=== PATIENT | male | born 1965 | race Caucasian/White ===

== ENCOUNTER 2022-10-31 12:03 | Observation (INO) | payer MEDICAID, OTHER ==
[~2022-10-31] VITALS: Ht 177.8 cm; Wt 168.5 kg
[2022-10-31] MEDS ORDERED: METF10004 PO (12:31)
[2022-10-31] MEDS ORDERED: LITH300T2 PO (12:31)
[2022-10-31] MEDS ORDERED: AMLO-140 PO (12:31)
[2022-10-31] MEDS ORDERED: ALPR2TAB3 PO (12:31)
[2022-10-31] MEDS ORDERED: FARX1TAB3 PO (12:31)
[2022-10-31] MEDS ORDERED: ATOR1TAB19 PO ×2 (12:31→19:20)
[2022-10-31] MEDS ORDERED: PERCOCET 5MG/325MG TAB PO ONE (13:40)
[2022-10-31 14:55] LABS: HEMATOCRIT 38.1 % (42.0-52.0); HEMOGLOBIN 11.4 g/dl (13.5-17.5); MEAN CORPUSCULAR HEMOGLOBIN 24.7 pg (27.0-33.0); MEAN CORPUSCULAR HGB CONC 29.9 g/dl (32.0-36.5); MEAN CORPUSCULAR VOLUME 82.6 fl (80.0-96.0); PLATELET COUNT, AUTOMATED 311 10^3/uL (150-450); RED BLOOD COUNT 4.61 10^6/uL (4.30-6.10); WHITE BLOOD COUNT 12.1 10^3/uL (4.0-10.0)
[2022-10-31 15:15] LABS: BLOOD UREA NITROGEN 11 MG/DL (9-23); CALCIUM LEVEL 9.5 MG/DL (8.5-10.1); CARBON DIOXIDE LEVEL 30 MMOL/L (20-31); CHLORIDE LEVEL 105 MMOL/L (98-107); CREATININE FOR GFR 0.87 MG/DL (0.70-1.30); GLOMERULAR FILTRATION RATE > 60.0 (>56); GLUCOSE, FASTING 116 MG/DL (60-100); POTASSIUM SERUM 4.9 MMOL/L (3.5-5.1); SODIUM LEVEL 140 MMOL/L (136-145)
[2022-10-31] MEDS ORDERED: ISOVUE-370 76% 100ML VIAL As Ordered ONE (15:20)
[2022-10-31] MEDS ORDERED: MORPHINE 4 MG/ML 1ML VIAL IV ONE (16:25)
[2022-10-31] MEDS ORDERED: **hydrALAZINE HCL** 25 MG TAB PO PRN (17:25)
[2022-10-31] MEDS ORDERED: PERCOCET 5MG/325MG TAB PO PRN (17:25)
[2022-10-31] MEDS ORDERED: GLUCAGON INJ 1MG VIAL SC PRN (17:30)
[2022-10-31] MEDS ORDERED: GLUCOSE 4GM CHEW TABLET PO PRN (17:30)
[2022-10-31] MEDS: INSULIN LISPRO (NovoLOG) PER UNIT SC SCH ×2 (17:30→21:00)
[2022-10-31] MEDS ORDERED: DEXTROSE 50% 50ML SYRINGE IV PRN (17:30)
[2022-10-31] MEDS ORDERED: LITH45TASA PO (19:08)
[2022-10-31] MEDS ORDERED: ALPR1TAB3 PO (19:08)
[2022-10-31] MEDS ORDERED: TERA10CA3 PO (19:18)
[2022-10-31] MEDS ORDERED: ZOLO100T PO (19:18)
[2022-10-31] MEDS ORDERED: MODA100T13 PO (19:18)
[2022-10-31] MEDS ORDERED: GABA-282 PO (19:18)
[2022-10-31] MEDS ORDERED: TRAM50TA2 PO (19:18)
[2022-10-31] MEDS ORDERED: AMLO1TAB25 PO (19:20)
[2022-10-31] MEDS ORDERED: HOME MED LIST COMPLETE! XX SCH (19:25)
[2022-10-31] MEDS ORDERED: ALPRAZolam 0.5 MG TAB PO PRN (19:45)
[2022-10-31 21:18] VITALS: BP 175/98
[2022-10-31] MEDS: HEPARIN SOD (PORCINE) 5000UNITS/ML 1ML VIAL/SYRINGE SC SCH (22:02)
[2022-10-31] MEDS: GABAPENTIN 300 MG CAP PO SCH (22:02)
[2022-10-31] MEDS: LITHIUM CARBONATE 450 MG **CR** TAB PO SCH (22:03)
[2022-10-31] MEDS: TERAZOSIN 5MG CAPSULE PO SCH (22:04)
[2022-10-31 22:11] VITALS: BP 160/98
[2022-11-01] MEDS: PERCOCET 5MG/325MG TAB PO PRN ×5 (00:16→22:57)
[2022-11-01 06:00] VITALS: BP 166/101
[2022-11-01 06:35] LABS: HEMATOCRIT 35.2 % (42.0-52.0); MEAN CORPUSCULAR HEMOGLOBIN 26.1 pg (27.0-33.0); MEAN CORPUSCULAR HGB CONC 31.3 g/dl (32.0-36.5); MEAN CORPUSCULAR VOLUME 83.6 fl (80.0-96.0); PLATELET COUNT, AUTOMATED 271 10^3/uL (150-450); RED BLOOD COUNT 4.21 10^6/uL (4.30-6.10); WHITE BLOOD COUNT 8.5 10^3/uL (4.0-10.0)
[2022-11-01 06:53] LABS: BLOOD UREA NITROGEN 7 MG/DL (9-23); CARBON DIOXIDE LEVEL 27 MMOL/L (20-31); CHLORIDE LEVEL 105 MMOL/L (98-107); GLOMERULAR FILTRATION RATE > 60.0 (>56); GLUCOSE, FASTING 88 MG/DL (60-100); POTASSIUM SERUM 4.2 MMOL/L (3.5-5.1); SODIUM LEVEL 138 MMOL/L (136-145)
[2022-11-01] MEDS: INSULIN LISPRO (NovoLOG) PER UNIT SC SCH ×4 (07:30→20:07)
[2022-11-01] MEDS: MODAFINIL 100 MG TABLET PO SCH (08:53)
[2022-11-01] MEDS: LITHIUM CARBONATE 450 MG **CR** TAB PO SCH ×2 (08:53→20:23)
[2022-11-01] MEDS: TERAZOSIN 5MG CAPSULE PO SCH ×2 (08:53→20:23)
[2022-11-01] MEDS: SERTRALINE 100 MG TAB PO SCH (08:54)
[2022-11-01] MEDS: HEPARIN SOD (PORCINE) 5000UNITS/ML 1ML VIAL/SYRINGE SC SCH ×2 (08:54→20:24)
[2022-11-01] MEDS: GABAPENTIN 300 MG CAP PO SCH ×3 (08:54→20:23)
[2022-11-01] MEDS: ATORVASTATIN 10 MG TAB PO SCH (08:54)
[2022-11-01] MEDS ORDERED: KETOROLAC 30 MG/ML 1ML VIAL IV ONE (09:05)
[2022-11-01] MEDS ORDERED: MORPHINE 2 MG/ML 1ML VIAL IV PRN (10:30)
[2022-11-01 11:55] VITALS: BP 134/76
[2022-11-01 14:00] VITALS: BP 147/96
[2022-11-01] MEDS ORDERED: IBUPROFEN 400MG TAB PO SCH (14:00)
[2022-11-01] MEDS ORDERED: IBUPROFEN 400MG TAB PO PRN (18:00)
[2022-11-01 20:00] VITALS: BP 163/108
[2022-11-01 20:51] VITALS: BP 144/90
[2022-11-01] MEDS ORDERED: OXYMETAZOLINE 0.05% NASAL SPRAY (AFRIN) SCH (21:00)
[2022-11-01] MEDS ORDERED: FLUTICASONE PROP 0.05% NASAL SPRAY 16 GM (FLONASE) NARES SCH (21:00)
[2022-11-02] MEDS: PERCOCET 5MG/325MG TAB PO PRN ×2 (03:16→08:47)
[2022-11-02 05:50] LABS: BASO % 0.5 % (0.0-1.0); EOS # 0.2 10^3/uL (0.0-0.5); EOS % 2.4 % (0.0-3.0); HEMATOCRIT 35.7 % (42.0-52.0); HEMOGLOBIN 10.9 g/dl (13.5-17.5); LYMPH # 1.2 10^3/uL (1.5-5.0); LYMPH % 14.9 % (24.0-44.0); MEAN CORPUSCULAR HEMOGLOBIN 25.2 pg (27.0-33.0); MEAN CORPUSCULAR HGB CONC 30.5 g/dl (32.0-36.5); MEAN CORPUSCULAR VOLUME 82.4 fl (80.0-96.0); MONO # 0.8 10^3/uL (0.0-0.8); MONO % 9.2 % (2.0-8.0); NEUTROPHILS % 72.6 % (36.0-66.0); PLATELET COUNT, AUTOMATED 278 10^3/uL (150-450); RED BLOOD COUNT 4.33 10^6/uL (4.30-6.10); WHITE BLOOD COUNT 8.3 10^3/uL (4.0-10.0)
[2022-11-02 06:00] VITALS: BP 149/93
[2022-11-02 06:10] LABS: BLOOD UREA NITROGEN 10 MG/DL (9-23); CALCIUM LEVEL 8.7 MG/DL (8.5-10.1); CARBON DIOXIDE LEVEL 25 MMOL/L (20-31); CHLORIDE LEVEL 103 MMOL/L (98-107); CREATININE FOR GFR 0.84 MG/DL (0.70-1.30); GLOMERULAR FILTRATION RATE > 60.0 (>56); GLUCOSE, FASTING 95 MG/DL (60-100); POTASSIUM SERUM 4.3 MMOL/L (3.5-5.1); SODIUM LEVEL 138 MMOL/L (136-145)
[2022-11-02] MEDS: INSULIN LISPRO (NovoLOG) PER UNIT SC SCH (07:13)
[2022-11-02] MEDS: GABAPENTIN 300 MG CAP PO SCH (08:44)
[2022-11-02] MEDS: ATORVASTATIN 10 MG TAB PO SCH (08:44)
[2022-11-02] MEDS: SERTRALINE 100 MG TAB PO SCH (08:45)
[2022-11-02] MEDS: MODAFINIL 100 MG TABLET PO SCH (08:45)
[2022-11-02] MEDS: LITHIUM CARBONATE 450 MG **CR** TAB PO SCH (08:45)
[2022-11-02] MEDS: HEPARIN SOD (PORCINE) 5000UNITS/ML 1ML VIAL/SYRINGE SC SCH (08:46)
[2022-11-02 08:49] VITALS: BP 151/94
[2022-11-02] MEDS: TERAZOSIN 5MG CAPSULE PO SCH (08:50)
[2022-11-02] MEDS ORDERED: PERCOCET PO (10:18)
== END 2022-11-02 11:27 | disposition home or self-care (01) ==
LOC: M ED 12:03 → EDBD 12:03 → INTOOBSV 17:18 → M ED INP 17:18 → M MSPAV 21:08
PROVIDERS: ADMIT Internal Medicine; ATTEND Internal Medicine
DX: S22.41XA Multiple fractures of ribs, right side, initial encounter for closed fracture (principal); R91.8 Other nonspecific abnormal finding of lung field; W01.10XA Fall on same level from slipping, tripping and stumbling with subsequent striking against unspecified object, initial encounter; Y92.098 Other place in other non-institutional residence as the place of occurrence of the external cause; I16.0 Hypertensive urgency; E11.9 Type 2 diabetes mellitus without complications; E78.5 Hyperlipidemia, unspecified; D72.829 Elevated white blood cell count, unspecified; F41.9 Anxiety disorder, unspecified; F32.9 Major depressive disorder, single episode, unspecified; E66.9 Obesity, unspecified; Z68.43 Body mass index [BMI] 50.0-59.9, adult; M54.9 Dorsalgia, unspecified; G89.29 Other chronic pain; G47.33 Obstructive sleep apnea (adult) (pediatric); G47.419 Narcolepsy without cataplexy; J30.9 Allergic rhinitis, unspecified; Z98.84 Bariatric surgery status; Z79.899 Other long term (current) drug therapy; Z79.84 Long term (current) use of oral hypoglycemic drugs; F17.210 Nicotine dependence, cigarettes, uncomplicated
CPT/HCPCS: 36415; 71101; 71260; 80048; 84145; 85025; 85027; 94010; 96372; 96374; 96375; 97161; 99285; J1815; J1885; Q9967

== ENCOUNTER → 2023-01-05 | Outpatient (CLI) | payer OTHER ==
[~2023-01-05] MED LIST: ACET-683 PO; ALPR1TAB3 PO; ALPR2TAB3 PO; AMLO-140 PO; AMLO1TAB25 PO; ATOR1TAB19 PO; FARX1TAB3 PO; GABA-282 PO; LITH300T2 PO; LITH45TASA PO; METF10004 PO; MODA100T13 PO; PERCOCET PO; TERA10CA3 PO; TRAM50TA2 PO; ZOLO100T PO
== END ==
LOC: M RAD 08:48
PROVIDERS: ATTEND Internal Medicine Pulmonary Disease
DX: R91.8 Other nonspecific abnormal finding of lung field (principal)

== ENCOUNTER → 2023-01-12 | Outpatient (CLI) | payer OTHER ==
[2023-01-12 14:40] LABS: C REACTIVE PROTEIN QUANTITATIV < 0.40 MG/DL (<1.0)
[2023-01-12 14:41] LABS: ALBUMIN 3.6 G/DL (3.2-5.2); ALKALINE PHOSPHATASE 67 U/L (46-116); ALT/SGPT 13 U/L (7.0-40); AST/SGOT 15 U/L (<34); BILIRUBIN,TOTAL 0.2 MG/DL (0.3-1.2); BLOOD UREA NITROGEN 19 MG/DL (9-23); CARBON DIOXIDE LEVEL 26 MMOL/L (20-31); CHLORIDE LEVEL 105 MMOL/L (98-107); CHOLESTEROL LEVEL 111 MG/DL (<200); CHOLESTEROL RISK RATIO 2.45 (<5); CK-MB VALUE MASS 3.4 NG/ML (<3.6); CPK CREATINE PHOSPHOKINASE 276 U/L (46-171); CREATININE FOR GFR 1.21 MG/DL (0.70-1.30); GLOMERULAR FILTRATION RATE > 60.0 (>56); GLUCOSE, FASTING 95 MG/DL (60-100); HDL CHOLESTEROL 45.2 MG/DL (>40); LDL CHOLESTEROL 44.8 MG/DL (<100); LITHIUM LEVEL 1.12 MMOL/L (1.0-1.20); MB/CK RELATIVE INDEX 1.23 (< OR =4); NON-HDL-C 65.8 MG/DL; POTASSIUM SERUM 4.8 MMOL/L (3.5-5.1); SODIUM LEVEL 136 MMOL/L (136-145); THYROID STIMULATING HORMONE 1.901 uIU/ML (0.55-4.78); TOTAL PROTEIN 6.5 G/DL (5.7-8.2); TRIGLYCERIDES LEVEL 105 MG/DL (<150)
== END ==
LOC: M PLALAB 12:05
PROVIDERS: ATTEND Student in an Organized Health Care Education/Training Program
DX: Z00.00 Encounter for general adult medical examination without abnormal findings (principal); M79.10 Myalgia, unspecified site; E11.42 Type 2 diabetes mellitus with diabetic polyneuropathy

== ENCOUNTER → 2023-07-06 | Outpatient (CLI) | payer OTHER ==
[2023-07-06 16:05] LABS: BASO # 0.1 10^3/uL (0.0-0.2); BASO % 0.6 % (0.0-1.0); EOS # 0.7 10^3/uL (0.0-0.5); EOS % 5.4 % (0.0-3.0); HEMATOCRIT 33.6 % (42.0-52.0); LYMPH # 2.3 10^3/uL (1.5-5.0); LYMPH % 19.2 % (24.0-44.0); MEAN CORPUSCULAR HEMOGLOBIN 28.7 pg (27.0-33.0); MEAN CORPUSCULAR HGB CONC 32.7 g/dl (32.0-36.5); MEAN CORPUSCULAR VOLUME 87.7 fl (80.0-96.0); MONO % 8.2 % (2.0-8.0); NEUTROPHILS % 66.3 % (36.0-66.0); PLATELET COUNT, AUTOMATED 351 10^3/uL (150-450); RED BLOOD COUNT 3.83 10^6/uL (4.30-6.10)
[2023-07-06 16:52] LABS: HEMOGLOBIN A1c 6.2 % (4.0-6.0)
== END ==
LOC: M PLAIMG 12:37
PROVIDERS: ATTEND Student in an Organized Health Care Education/Training Program
DX: F32.A Depression, unspecified (principal); M51.86 Other intervertebral disc disorders, lumbar region

== ENCOUNTER → 2024-03-15 | Outpatient (CLI) | payer MEDICAID, OTHER ==
[2024-03-15 15:03] LABS: BASO # 0.1 10^3/uL (0.0-0.2); BASO % 0.9 % (0.0-1.0); EOS # 0.6 10^3/uL (0.0-0.5); EOS % 8.2 % (0.0-3.0); HEMATOCRIT 35.1 % (42.0-52.0); LYMPH # 1.7 10^3/uL (1.5-5.0); LYMPH % 22.2 % (24.0-44.0); MEAN CORPUSCULAR HGB CONC 31.3 g/dl (32.0-36.5); MONO # 0.5 10^3/uL (0.0-0.8); MONO % 6.6 % (2.0-8.0); NEUTROPHILS # 4.7 10^3/uL (1.5-8.5); NEUTROPHILS % 61.8 % (36.0-66.0); PLATELET COUNT, AUTOMATED 304 10^3/uL (150-450); RED BLOOD COUNT 4.08 10^6/uL (4.30-6.10); WHITE BLOOD COUNT 7.5 10^3/uL (4.0-10.0)
[2024-03-15 15:15] LABS: HEMOGLOBIN A1c 5.9 % (4.0-6.0)
[2024-03-15 15:19] LABS: IRON (FE) 17 UG/DL (65-175)
[2024-03-15 15:20] LABS: ALBUMIN 3.6 G/DL (3.2-5.2); ALKALINE PHOSPHATASE 62 U/L (46-116); ALT/SGPT 15 U/L (7.0-40); AST/SGOT 9 U/L (<34); BILIRUBIN,TOTAL 0.3 MG/DL (0.3-1.2); BLOOD UREA NITROGEN 12 MG/DL (9-23); CALCIUM LEVEL 9.3 MG/DL (8.5-10.1); CARBON DIOXIDE LEVEL 26 MMOL/L (20-31); CHLORIDE LEVEL 112 MMOL/L (98-107); CHOLESTEROL LEVEL 115 MG/DL (<200); CREATININE FOR GFR 1.01 MG/DL (0.70-1.30); FERRITIN 4.5 NG/ML (10.5-307.3); FREE T4 0.94 NG/DL (0.89-1.76); GLOMERULAR FILTRATION RATE > 60.0 (>56); GLUCOSE, FASTING 112 MG/DL (60-100); HDL CHOLESTEROL 47.8 MG/DL (>40); MAGNESIUM LEVEL 1.8 MG/DL (1.8-2.4); NON-HDL-C 67.2 MG/DL; POTASSIUM SERUM 4.6 MMOL/L (3.5-5.1); SODIUM LEVEL 139 MMOL/L (136-145); TOTAL PROTEIN 6.9 G/DL (5.7-8.2); TRIGLYCERIDES LEVEL 91 MG/DL (<150)
[2024-03-15 15:21] LABS: THYROID STIMULATING HORMONE 1.057 uIU/ML (0.55-4.78)
[2024-03-15 15:22] LABS: VITAMIN B12 LEVEL 375 PG/ML (211-911)
[2024-03-21 23:13] LABS: TESTOSTERONE FREE (DIRECT) 81.7 pg/mL (35.0-155.0)
== END ==
LOC: M LAB 13:33
PROVIDERS: ATTEND Nurse Practitioner Psychiatric/Mental Health
DX: F41.9 Anxiety disorder, unspecified (principal)

== ENCOUNTER → 2024-04-04 | Outpatient (CLI) | payer OTHER | LOC: M SLEEP HO 10:36 | PROVIDERS: ATTEND Nurse Practitioner Family | DX: G47.33 Obstructive sleep apnea (adult) (pediatric) (principal) ==

== ENCOUNTER → 2024-04-12 | Outpatient (CLI) | payer OTHER, MEDICAID ==
[~2024-04-12] MED LIST changes: +GABA-1172 PO; -GABA-282 PO; +LITH450T11 PO; -LITH45TASA PO
== END ==
LOC: M PAIN 13:00
PROVIDERS: ATTEND Nurse Practitioner Family
DX: M54.16 Radiculopathy, lumbar region (principal); G89.29 Other chronic pain; E66.9 Obesity, unspecified; G47.33 Obstructive sleep apnea (adult) (pediatric); M79.7 Fibromyalgia; E78.5 Hyperlipidemia, unspecified; E11.40 Type 2 diabetes mellitus with diabetic neuropathy, unspecified; F41.8 Other specified anxiety disorders; I10 Essential (primary) hypertension; Z98.84 Bariatric surgery status; F17.200 Nicotine dependence, unspecified, uncomplicated; Z79.84 Long term (current) use of oral hypoglycemic drugs; Z79.899 Other long term (current) drug therapy; Z68.43 Body mass index [BMI] 50.0-59.9, adult

== ENCOUNTER → 2024-05-11 | Outpatient (CLI) | payer OTHER | LOC: M PLAIMG 07:47 | PROVIDERS: ATTEND Nurse Practitioner Family | DX: M54.16 Radiculopathy, lumbar region (principal); M47.896 Other spondylosis, lumbar region ==

== ENCOUNTER → 2024-06-02 | Outpatient (CLI) | payer OTHER | LOC: M SLEEP 20:00 | PROVIDERS: ATTEND Internal Medicine Pulmonary Disease | DX: G47.33 Obstructive sleep apnea (adult) (pediatric) (principal) ==

== ENCOUNTER → 2024-07-31 | Outpatient (REF) | payer OTHER ==
[2024-07-31 18:04] LABS: HEMOGLOBIN A1c 5.8 % (4.0-6.0)
[2024-07-31 18:05] LABS: ALBUMIN 3.3 G/DL (3.2-5.2); ALKALINE PHOSPHATASE 52 U/L (40-129); ALT/SGPT 26 U/L (7.0-40); AST/SGOT 23 U/L (<34); BILIRUBIN,TOTAL 0.3 MG/DL (0.3-1.2); BLOOD UREA NITROGEN 14 MG/DL (9-23); CALCIUM LEVEL 9.9 MG/DL (8.5-10.1); CARBON DIOXIDE LEVEL 25 MMOL/L (20-31); CHLORIDE LEVEL 109 MMOL/L (98-107); CHOLESTEROL LEVEL 113 MG/DL (<200); CHOLESTEROL RISK RATIO 2.93 (<5); CREATININE FOR GFR 1.37 MG/DL (0.70-1.30); GLUCOSE, FASTING 90 MG/DL (60-100); HDL CHOLESTEROL 38.5 MG/DL (>40); LDL CHOLESTEROL 47.9 MG/DL (<100); NON-HDL-C 74.5 MG/DL; SODIUM LEVEL 137 MMOL/L (136-145); THYROID STIMULATING HORMONE 0.862 uIU/ML (0.55-4.78); TOTAL 25(OH) VITAMIN D 62.8 NG/ML (20.0-100.0); TOTAL PROTEIN 6.9 G/DL (5.7-8.2); TRIGLYCERIDES LEVEL 133 MG/DL (<150)
== END ==
LOC: M LAB REF 16:21
PROVIDERS: ATTEND Physician Assistant
DX: Z11.9 Encounter for screening for infectious and parasitic diseases, unspecified (principal); E66.9 Obesity, unspecified; E55.9 Vitamin D deficiency, unspecified

== ENCOUNTER → 2024-11-12 | Outpatient (CLI) | payer OTHER ==
[~2024-11-12] MED LIST changes: -LITH450T11 PO; +LITH450T17 PO
[2024-11-12 14:11] LABS: BASO # 0.1 10^3/uL (0.0-0.2); BASO % 0.7 % (0.0-1.0); EOS % 9.4 % (0.0-3.0); HEMATOCRIT 35.3 % (42.0-52.0); HEMOGLOBIN 10.8 g/dl (13.5-17.5); LYMPH # 2.4 10^3/uL (1.5-5.0); LYMPH % 23.7 % (24.0-44.0); MEAN CORPUSCULAR HEMOGLOBIN 25.3 pg (27.0-33.0); MEAN CORPUSCULAR HGB CONC 30.6 g/dl (32.0-36.5); MEAN CORPUSCULAR VOLUME 82.7 fl (80.0-96.0); MONO # 0.7 10^3/uL (0.0-0.8); MONO % 6.5 % (2.0-8.0); NEUTROPHILS % 59.5 % (36.0-66.0); PLATELET COUNT, AUTOMATED 308 10^3/uL (150-450); RED BLOOD COUNT 4.27 10^6/uL (4.30-6.10); WHITE BLOOD COUNT 10.2 10^3/uL (4.0-10.0)
[2024-11-12 14:47] LABS: THYROID STIMULATING HORMONE 1.543 uIU/ML (0.55-4.78)
[2024-11-12 18:11] LABS: LITHIUM LEVEL 0.55 MMOL/L (1.0-1.20)
== END ==
LOC: M LAB 13:13
PROVIDERS: ATTEND Nurse Practitioner Psychiatric/Mental Health
DX: F33.0 Major depressive disorder, recurrent, mild (principal)

== ENCOUNTER → 2025-02-12 | Outpatient (CLI) | payer OTHER ==
[2025-02-12 09:56] LABS: BASO # 0.1 10^3/uL (0.0-0.2); BASO % 0.8 % (0.0-1.0); EOS # 0.6 10^3/uL (0.0-0.5); EOS % 6.5 % (0.0-3.0); LYMPH # 2.2 10^3/uL (1.5-5.0); LYMPH % 24.7 % (24.0-44.0); MONO # 0.7 10^3/uL (0.0-0.8); MONO % 7.4 % (2.0-8.0); NEUTROPHILS # 5.4 10^3/uL (1.5-8.5); NEUTROPHILS % 60.4 % (36.0-66.0); PLATELET COUNT, AUTOMATED 311 10^3/uL (150-450)
[2025-02-12 10:26] LABS: ALT/SGPT 28.0 U/L (7.0-40); AST/SGOT 18.0 U/L (<34); CALCIUM LEVEL 9.5 MG/DL (8.5-10.1); CARBON DIOXIDE LEVEL 24.0 MMOL/L (20-31); CHLORIDE LEVEL 106.0 MMOL/L (98-107); CREATININE FOR GFR 1.32 MG/DL (0.70-1.30); GLOMERULAR FILTRATION RATE 62.5 (>56); POTASSIUM SERUM 4.6 MMOL/L (3.5-5.1); SODIUM LEVEL 141.0 MMOL/L (136-145); TOTAL 25(OH) VITAMIN D 27.9 NG/ML (20.0-100.0)
[2025-02-13 16:22] LABS: LITHIUM LEVEL 1.0 MMOL/L (1.0-1.20)
== END ==
LOC: M LAB 08:50
PROVIDERS: ATTEND Nurse Practitioner Psychiatric/Mental Health
DX: F41.9 Anxiety disorder, unspecified (principal); F33.0 Major depressive disorder, recurrent, mild; R11.10 Vomiting, unspecified; K22.89 Other specified disease of esophagus

== ENCOUNTER → 2025-02-12 | Outpatient (CLI) | payer OTHER ==
[~2025-02-12] MED LIST changes: +E-Z-GAS II EFFERVESCENT PACKET (SODIUM BICARB./CITRIC ACID/SIMETHICONE) As Ordered ONE; +E-Z-HD 98% w/w 340 GM SUSP BTL As Ordered ONE; +E-Z-PAQUE 96% w/w SUSP 176 GM BTL As Ordered ONE
== END ==
LOC: M RAD 07:37
PROVIDERS: ATTEND Physician Assistant
DX: R11.10 Vomiting, unspecified (principal); K22.89 Other specified disease of esophagus

== ENCOUNTER → 2025-03-21 | Outpatient (REF) | payer OTHER ==
[~2025-03-21] MED LIST changes: -E-Z-GAS II EFFERVESCENT PACKET (SODIUM BICARB./CITRIC ACID/SIMETHICONE) As Ordered ONE; -E-Z-HD 98% w/w 340 GM SUSP BTL As Ordered ONE; -E-Z-PAQUE 96% w/w SUSP 176 GM BTL As Ordered ONE
[2025-03-21 18:14] LABS: BASO # 0.1 10^3/uL (0.0-0.2); BASO % 1.0 % (0.0-1.0); EOS # 0.6 10^3/uL (0.0-0.5); EOS % 5.2 % (0.0-3.0); LYMPH # 3.1 10^3/uL (1.5-5.0); LYMPH % 27.4 % (24.0-44.0); MONO # 0.9 10^3/uL (0.0-0.8); MONO % 7.8 % (2.0-8.0); NEUTROPHILS # 6.6 10^3/uL (1.5-8.5); NEUTROPHILS % 58.2 % (36.0-66.0); PLATELET COUNT, AUTOMATED 444 10^3/uL (150-450)
[2025-03-21 18:39] LABS: ERYTHROCYTE SEDIMENTATION RATE 37 mm/hr (0-20)
[2025-03-21 18:42] LABS: ALT/SGPT 19 U/L (7.0-40); AST/SGOT 17 U/L (<34); C REACTIVE PROTEIN QUANTITATIV < 0.50 MG/DL (<1.0); CALCIUM LEVEL 10.3 MG/DL (8.5-10.1); CARBON DIOXIDE LEVEL 27 MMOL/L (20-31); CHLORIDE LEVEL 105 MMOL/L (98-107); CREATININE FOR GFR 1.28 MG/DL (0.70-1.30); GLOMERULAR FILTRATION RATE 64.9 (>56); POTASSIUM SERUM 5.0 MMOL/L (3.5-5.1); SODIUM LEVEL 141 MMOL/L (136-145)
== END ==
LOC: M LAB REF 16:20
PROVIDERS: ATTEND Physician Assistant
DX: R10.9 Unspecified abdominal pain (principal)

== ENCOUNTER → 2025-03-25 | Outpatient (CLI) | payer OTHER ==
[~2025-03-25] MED LIST changes: +ISOVUE-370 76% 100 ML VIAL As Ordered ONE
== END ==
LOC: M RAD 15:33
PROVIDERS: ATTEND Physician Assistant
DX: R10.9 Unspecified abdominal pain (principal)
CPT/HCPCS: 74177; Q9967

== ENCOUNTER 2025-05-06 19:11 | Inpatient (IN) | payer OTHER ==
[~2025-05-06] VITALS: Ht 180.3 cm; Wt 134.8 kg
[~2025-05-06 19:11] MED LIST changes: -ISOVUE-370 76% 100 ML VIAL As Ordered ONE
[2025-05-06 22:52] LABS: BASO # 0.1 10^3/uL (0.0-0.2); BASO % 0.7 % (0.0-1.0); EOS # 0.4 10^3/uL (0.0-0.5); EOS % 3.1 % (0.0-3.0); LYMPH # 2.4 10^3/uL (1.5-5.0); LYMPH % 20.2 % (24.0-44.0); MONO # 1.0 10^3/uL (0.0-0.8); MONO % 8.4 % (2.0-8.0); NEUTROPHILS # 8.1 10^3/uL (1.5-8.5); NEUTROPHILS % 67.0 % (36.0-66.0); PLATELET COUNT, AUTOMATED 420 10^3/uL (150-450)
[2025-05-06 23:42] LABS: CALCIUM LEVEL 9.4 MG/DL (8.5-10.1); CARBON DIOXIDE LEVEL 21.0 MMOL/L (20-31); CHLORIDE LEVEL 107.0 MMOL/L (98-107); CK-MB VALUE MASS 1.7 NG/ML (<3.6); CPK CREATINE PHOSPHOKINASE 69.0 U/L (46-171); CREATININE FOR GFR 1.71 MG/DL (0.70-1.30); GLOMERULAR FILTRATION RATE 45.8 (>56); MB/CK RELATIVE INDEX 2.46 (< OR =4); POTASSIUM SERUM 4.4 MMOL/L (3.5-5.1); SODIUM LEVEL 141.0 MMOL/L (136-145)
[2025-05-07] MEDS: NS (Normal Saline) 0.9% 1,000 ML IV ONE (05:33)
[2025-05-07 05:46] LABS: KETONE, URINE AUTO RFX NEGATIVE (NEGATIVE); LEUKOCYTE ESTERASE UR AUTO RFX NEGATIVE (NEGATIVE); MUCUS, URINE RFX SMALL (NEGATIVE); NITRITE, URINE AUTO RFX NEGATIVE (NEGATIVE); RBC, URINE AUTO RFX 0 /HPF (0-3); SQUAM EPITHELIAL CELL UR AURFX 0 /HPF (0-6); WBC, URINE AUTO RFX 0 /HPF (0-3)
[2025-05-07 06:07] LABS: AMPHETAMINES LEVEL URINE NEGATIVE (NEGATIVE); BARBITURATES URINE NEGATIVE (NEGATIVE); CANNABINOIDS URINE NEGATIVE (NEGATIVE); COCAINE METABOLITE URINE NEGATIVE (NEGATIVE); METHADONE URINE NEGATIVE (NEGATIVE); OPIATES URINE NEGATIVE (NEGATIVE); PHENCYCLIDINE URINE NEGATIVE (NEGATIVE)
[2025-05-07 06:09] LABS: CK-MB VALUE MASS 1.5 NG/ML (<3.6); MAGNESIUM LEVEL 1.8 MG/DL (1.8-2.4)
[2025-05-07 06:12] LABS: LITHIUM LEVEL 1.4 MMOL/L (1.0-1.20)
[2025-05-07 06:14] LABS: FREE T4 1.18 NG/DL (0.89-1.76)
[2025-05-07 06:19] LABS: BENZODIAZEPINES URINE POSITIVE (NEGATIVE); CPK CREATINE PHOSPHOKINASE 68.0 U/L (46-171); MB/CK RELATIVE INDEX 2.2 (< OR =4)
[2025-05-07] MEDS ORDERED: METH10CP3 PO (09:43)
[2025-05-07] MEDS ORDERED: METF500T13 PO (09:43)
[2025-05-07] MEDS ORDERED: LITH300T PO (09:43)
[2025-05-07] MEDS ORDERED: VITAD1000T PO (09:43)
[2025-05-07] MEDS ORDERED: OMEP1CAP73 PO (09:43)
[2025-05-07] MEDS ORDERED: TRUL0.5I SC (09:43)
[2025-05-07] MEDS ORDERED: METO50TA7 PO (09:43)
[2025-05-07] MEDS ORDERED: IRBE150T27 PO (09:45)
[2025-05-07] MEDS ORDERED: ATOR1TAB21 PO (09:45)
[2025-05-07] MEDS ORDERED: FEXO60TA98 PO (09:45)
[2025-05-07] MEDS ORDERED: HOME MED LIST COMPLETE! XX SCH (09:50)
[2025-05-07] MEDS ORDERED: BUPR-69 PO (09:52)
[2025-05-07] MEDS: NS (Normal Saline) 0.9% 1,000 ML IV SCH (10:46)
[2025-05-07] MEDS: HEPARIN SOD 5000 UNITS/ML 1 ML VIAL/SYRINGE SC SCH (14:00)
[2025-05-07 15:25] VITALS: BP 146/76; TEMP 97.8; O2SAT 99
[2025-05-07 16:02] VITALS: BP 131/77; TEMP 97.3; O2SAT 99
[2025-05-07] MEDS ORDERED: ALPRAZolam 0.5 MG TAB PO PRN (16:10)
[2025-05-07 19:33] VITALS: BP 164/70; TEMP 98.4; O2SAT 98
[2025-05-07] MEDS: TERAZOSIN 5MG CAPSULE PO SCH (20:30)
[2025-05-07] MEDS: NYSTATIN OINTMENT 15 GM TOP SCH (20:30)
[2025-05-07] MEDS: METOPROLOL TART 50 MG TAB PO SCH (20:31)
[2025-05-07] MEDS: OMEPRAZOLE 20MG CAP PO SCH (20:31)
[2025-05-08] VITALS (7 sets, daily range): BP systolic 113–144; BP diastolic 67–86; TEMP 97.1–98.7; O2SAT 95–99
[2025-05-08 05:35] LABS: PLATELET COUNT, AUTOMATED 332 10^3/uL (150-450)
[2025-05-08 05:51] LABS: ALT/SGPT 15.0 U/L (7.0-40); AST/SGOT 14.0 U/L (<34); CALCIUM LEVEL 9.0 MG/DL (8.5-10.1); CARBON DIOXIDE LEVEL 24.0 MMOL/L (20-31); CHLORIDE LEVEL 108.0 MMOL/L (98-107); CREATININE FOR GFR 1.21 MG/DL (0.70-1.30); GLOMERULAR FILTRATION RATE 69.4 (>56); LITHIUM LEVEL 1.0 MMOL/L (1.0-1.20); POTASSIUM SERUM 4.3 MMOL/L (3.5-5.1); SODIUM LEVEL 142.0 MMOL/L (136-145)
[2025-05-08] MEDS: FEXOFENADINE 60 MG TAB PO SCH (10:10)
[2025-05-08] MEDS: ATORVASTATIN 20 MG TAB PO SCH (10:12)
[2025-05-08] MEDS: amLODIPine 10 MG TAB PO SCH (10:12)
[2025-05-08] MEDS: METOPROLOL TART 25 MG TABLET PO SCH (20:34)
[2025-05-09 04:51] VITALS: BP 134/73; TEMP 98.3; O2SAT 93
[2025-05-09 07:53] LABS: BASO # 0.1 10^3/uL (0.0-0.2); BASO % 0.5 % (0.0-1.0); EOS # 0.4 10^3/uL (0.0-0.5); EOS % 3.6 % (0.0-3.0); LYMPH # 2.5 10^3/uL (1.5-5.0); LYMPH % 23.2 % (24.0-44.0); MONO # 0.8 10^3/uL (0.0-0.8); MONO % 7.0 % (2.0-8.0); NEUTROPHILS # 7.0 10^3/uL (1.5-8.5); NEUTROPHILS % 65.4 % (36.0-66.0); PLATELET COUNT, AUTOMATED 298 10^3/uL (150-450)
[2025-05-09 08:04] VITALS: BP 143/87; TEMP 98; O2SAT 94
[2025-05-09 08:24] LABS: CALCIUM LEVEL 8.7 MG/DL (8.5-10.1); CARBON DIOXIDE LEVEL 23.0 MMOL/L (20-31); CHLORIDE LEVEL 110.0 MMOL/L (98-107); CREATININE FOR GFR 1.21 MG/DL (0.70-1.30); GLOMERULAR FILTRATION RATE 69.4 (>56); POTASSIUM SERUM 4.3 MMOL/L (3.5-5.1); SODIUM LEVEL 143.0 MMOL/L (136-145)
[2025-05-09] MEDS: buPROPion **XL** 150 MG TABLET PO SCH (09:52)
[2025-05-09 09:53] VITALS: BP 143/87
[2025-05-09 11:59] VITALS: BP 130/72; TEMP 97.1; O2SAT 97
[2025-05-09 16:26] VITALS: BP 132/74; TEMP 97.2; O2SAT 96
[2025-05-09] MEDS: POLYETHYLENE GLYCOL 238 GM BOTTLE PO ONE (17:23)
[2025-05-09 20:00] VITALS: BP 142/87; TEMP 97.8; O2SAT 100
[2025-05-10] VITALS: BP 139/80; TEMP 97.1; O2SAT 98
[2025-05-10 04:00] VITALS: BP 135/75; TEMP 97; O2SAT 99
[2025-05-10 07:59] VITALS: BP 136/70; TEMP 97.1; O2SAT 98
[2025-05-10 10:16] LABS: BASO # 0.0 10^3/uL (0.0-0.2); BASO % 0.6 % (0.0-1.0); EOS # 0.3 10^3/uL (0.0-0.5); EOS % 4.6 % (0.0-3.0); LYMPH # 1.9 10^3/uL (1.5-5.0); LYMPH % 26.8 % (24.0-44.0); MONO # 0.6 10^3/uL (0.0-0.8); MONO % 8.0 % (2.0-8.0); NEUTROPHILS # 4.2 10^3/uL (1.5-8.5); NEUTROPHILS % 59.6 % (36.0-66.0); PLATELET COUNT, AUTOMATED 278 10^3/uL (150-450)
[2025-05-10 12:16] VITALS: BP 134/86; TEMP 97; O2SAT 97
[2025-05-10] MEDS ORDERED: LIDOCAINE 2% 100 MG/5 ML SDV (FOR ANES.) As Ordered ONE (13:49)
[2025-05-10 15:30] VITALS: BP 137/88; TEMP 97.8; O2SAT 95
[2025-05-10] MEDS ORDERED: ABIL1TAB11 PO (16:01)
[2025-05-10] MEDS ORDERED: MIRA3350 PO (16:01)
[2025-05-10] MEDS ORDERED: WELLTAB38 PO (16:01)
[2025-05-10] MEDS ORDERED: METO1TAB87 PO (16:01)
[2025-05-10] MEDS ORDERED: SENN8.6T58 PO (16:01)
== END 2025-05-10 18:38 | disposition home or self-care (01) | DRG 422 ==
LOC: M ED 19:11 → M ED INP 05-07 10:14 → M PCU 05-07 15:16 → M MS4PR 05-08 22:55
PROVIDERS: ADMIT Internal Medicine; ATTEND Internal Medicine
PROC: B246ZZZ Ultrasonography of Right and Left Heart (ICD-10-PCS; 2025-05-07)
PROC: 0DBH8ZX Excision of Cecum, Via Natural or Artificial Opening Endoscopic, Diagnostic (ICD-10-PCS; principal; 2025-05-10 13:25)
DX: E86.0 Dehydration (principal); N17.9 Acute kidney failure, unspecified; E11.42 Type 2 diabetes mellitus with diabetic polyneuropathy; E11.649 Type 2 diabetes mellitus with hypoglycemia without coma; E66.01 Morbid (severe) obesity due to excess calories; Z68.41 Body mass index [BMI] 40.0-44.9, adult; F41.9 Anxiety disorder, unspecified; K64.9 Unspecified hemorrhoids; I10 Essential (primary) hypertension; Z98.84 Bariatric surgery status; R42 Dizziness and giddiness; D12.0 Benign neoplasm of cecum; R55 Syncope and collapse; F90.9 Attention-deficit hyperactivity disorder, unspecified type; E78.5 Hyperlipidemia, unspecified; F31.81 Bipolar II disorder; K57.30 Diverticulosis of large intestine without perforation or abscess without bleeding; I45.2 Bifascicular block; R63.4 Abnormal weight loss; G89.29 Other chronic pain; M54.9 Dorsalgia, unspecified; M25.551 Pain in right hip; K92.1 Melena; D64.9 Anemia, unspecified; Z79.84 Long term (current) use of oral hypoglycemic drugs; Z79.899 Other long term (current) drug therapy; Z90.49 Acquired absence of other specified parts of digestive tract

== ENCOUNTER → 2025-05-10 | Outpatient (CLI) | payer OTHER ==
[~2025-05-10] MED LIST changes: +ABIL1TAB11 PO; +ATOR1TAB21 PO; +BUPR-69 PO; +FEXO60TA98 PO; +IRBE150T27 PO; +LITH300T PO; +METF500T13 PO; +METH10CP3 PO; +METO1TAB87 PO; +METO50TA7 PO; +MIRA3350 PO; +OMEP1CAP73 PO; +SENN8.6T58 PO; +TRUL0.5I SC; +VITAD1000T PO; +WELLTAB38 PO
== END ==
LOC: M EKG 17:14
PROVIDERS: ATTEND Internal Medicine
DX: R55 Syncope and collapse (principal); Z53.9 Procedure and treatment not carried out, unspecified reason

== ENCOUNTER 2025-06-02 00:32 | Emergency (ER) | payer OTHER ==
[~2025-06-02] VITALS: Ht 180.3 cm; Wt 121.8 kg
[2025-06-02 01:30] LABS: BASO # 0.1 10^3/uL (0.0-0.2); BASO % 0.5 % (0.0-1.0); EOS # 0.3 10^3/uL (0.0-0.5); EOS % 2.9 % (0.0-3.0); LYMPH # 2.5 10^3/uL (1.5-5.0); LYMPH % 26.6 % (24.0-44.0); MONO # 0.9 10^3/uL (0.0-0.8); MONO % 9.1 % (2.0-8.0); NEUTROPHILS # 5.8 10^3/uL (1.5-8.5); NEUTROPHILS % 60.6 % (36.0-66.0); PLATELET COUNT, AUTOMATED 306 10^3/uL (150-450)
[2025-06-02 01:47] LABS: ALT/SGPT 20.0 U/L (7.0-40); AST/SGOT 21.0 U/L (<34); CALCIUM LEVEL 9.4 MG/DL (8.5-10.1); CARBON DIOXIDE LEVEL 25.0 MMOL/L (20-31); CHLORIDE LEVEL 103.0 MMOL/L (98-107); CREATININE FOR GFR 1.77 MG/DL (0.70-1.30); GLOMERULAR FILTRATION RATE 44.0 (>56); POTASSIUM SERUM 4.1 MMOL/L (3.5-5.1); SODIUM LEVEL 138.0 MMOL/L (136-145)
[2025-06-02] MEDS: NS (Normal Saline) 0.9% 1,000 ML IV ONE (03:39)
[2025-06-02] MEDS: GASTROGRAFIN SOLUTION 30ML PO SCH (04:03)
[2025-06-02] MEDS ORDERED: ISOVUE-370 76% 100 ML VIAL As Ordered ONE (05:29)
[2025-06-02 06:49] VITALS: BP 111/55; TEMP 96.7; O2SAT 100
[2025-06-02] MEDS ORDERED: REGL5TAB2 PO (07:03)
== END 2025-06-02 07:16 | disposition home or self-care (01) ==
LOC: M ED 00:32
DX: N17.9 Acute kidney failure, unspecified (principal); K31.84 Gastroparesis; E11.9 Type 2 diabetes mellitus without complications; I10 Essential (primary) hypertension; E78.5 Hyperlipidemia, unspecified; Z90.49 Acquired absence of other specified parts of digestive tract; F17.210 Nicotine dependence, cigarettes, uncomplicated; K76.0 Fatty (change of) liver, not elsewhere classified; Z79.899 Other long term (current) drug therapy
CPT/HCPCS: 36415; 74177; 80048; 80076; 83690; 85025; 87486; 87581; 87633; 87798; 96374; 99284; J2765; Q9963; Q9967

== ENCOUNTER 2025-06-17 17:17 | Emergency (ER) | payer OTHER ==
[~2025-06-17] VITALS: Ht 180.3 cm; Wt 133.2 kg
[~2025-06-17 17:17] MED LIST changes: +REGL5TAB2 PO
[2025-06-17 17:24] VITALS: TEMP 98.3
[2025-06-17] MEDS ORDERED: FAMO40SU9 (17:39)
[2025-06-17] MEDS: ONDANSETRON 4MG/2ML VIAL IV ONE (18:05)
[2025-06-17 19:12] LABS: BASO # 0.0 10^3/uL (0.0-0.2); BASO % 0.4 % (0.0-1.0); EOS # 0.2 10^3/uL (0.0-0.5); EOS % 2.1 % (0.0-3.0); LYMPH # 2.0 10^3/uL (1.5-5.0); LYMPH % 27.5 % (24.0-44.0); MONO # 0.6 10^3/uL (0.0-0.8); MONO % 8.2 % (2.0-8.0); NEUTROPHILS # 4.4 10^3/uL (1.5-8.5); NEUTROPHILS % 61.7 % (36.0-66.0); PLATELET COUNT, AUTOMATED 387 10^3/uL (150-450)
[2025-06-17 19:36] LABS: CPK CREATINE PHOSPHOKINASE 98.0 U/L (46-171)
[2025-06-17 19:40] LABS: ALT/SGPT 14.0 U/L (7.0-40); AST/SGOT 17.0 U/L (<34); CALCIUM LEVEL 9.6 MG/DL (8.5-10.1); CARBON DIOXIDE LEVEL 27.0 MMOL/L (20-31); CHLORIDE LEVEL 108.0 MMOL/L (98-107); CK-MB VALUE MASS 2.3 NG/ML (<3.6); CREATININE FOR GFR 0.98 MG/DL (0.70-1.30); GLOMERULAR FILTRATION RATE 89.4 (>56); MB/CK RELATIVE INDEX 2.34 (< OR =4); POTASSIUM SERUM 4.2 MMOL/L (3.5-5.1); SODIUM LEVEL 142.0 MMOL/L (136-145)
[2025-06-17] MEDS ORDERED: ISOVUE-370 76% 100 ML VIAL As Ordered ONE (19:57)
[2025-06-17 21:07] LABS: CK-MB VALUE MASS 2.1 NG/ML (<3.6)
[2025-06-17 21:09] LABS: CPK CREATINE PHOSPHOKINASE 95.0 U/L (46-171); MB/CK RELATIVE INDEX 2.21 (< OR =4)
[2025-06-17 22:47] LABS: CK-MB VALUE MASS 1.8 NG/ML (<3.6)
[2025-06-17 22:48] LABS: CPK CREATINE PHOSPHOKINASE 94.0 U/L (46-171); MB/CK RELATIVE INDEX 1.91 (< OR =4)
[2025-06-17 23:01] VITALS: O2SAT 98
[2025-06-17] MEDS ORDERED: ONDA-282 PO (23:13)
[2025-06-17 23:30] VITALS: BP 152/92
== END 2025-06-17 23:35 | disposition home or self-care (01) ==
LOC: M ED 17:17
DX: R11.10 Vomiting, unspecified (principal); E11.9 Type 2 diabetes mellitus without complications; F41.9 Anxiety disorder, unspecified; F32.A Depression, unspecified; Z98.84 Bariatric surgery status; F17.200 Nicotine dependence, unspecified, uncomplicated
CPT/HCPCS: 74177; 80048; 80076; 82550; 82553; 83690; 84484; 85025; 93005; 93041; 96374; 99285; J2405; Q9967

== ENCOUNTER 2025-07-11 18:28 | Observation (INO) | payer OTHER ==
[~2025-07-11] VITALS: Ht 177.8 cm; Wt 130.0 kg
[~2025-07-11 18:28] MED LIST changes: +FAMO40SU9; +ONDA-282 PO
[2025-07-11] MEDS ORDERED: PIPERACILLIN/TAZOBACTAM SOD 4.5 GM in DEXTROSE 5% (D5W) ADV/MINI-BAG 50 ML IV ONE (19:55)
[2025-07-11] MEDS: IPRATROPIUM 0.5 MG/ALBUTEROL 2.5 MG INH SOL UD 3 ML NEB ONE ×2 (20:03→23:10)
[2025-07-11 20:23] LABS: VENOUS BASE EXCESS -4.9 (-2.0-2.0); VENOUS HCO3 21.4 MMOL/L (23.0-27.0); VENOUS O2 SATURATION 72.7 % (60.0-80.0); VENOUS PARTIAL PRESSURE CO2 44.8 mmHg (38.0-50.0); VENOUS PARTIAL PRESSURE O2 42.9 mmHg (30.0-50.0); VENOUS PH 7.298 UNITS (7.330-7.430); VENOUS STANDARD HCO3 20.0 MMOL/L; VENOUS TOTAL CO2 22.8 MMOL/L (24.0-28.0)
[2025-07-11 20:40] LABS: BASO # 0.0 10^3/uL (0.0-0.2); BASO % 0.2 % (0.0-1.0); EOS # 0.1 10^3/uL (0.0-0.5); EOS % 1.1 % (0.0-3.0); LYMPH # 1.0 10^3/uL (1.5-5.0); LYMPH % 9.0 % (24.0-44.0); MONO # 0.7 10^3/uL (0.0-0.8); MONO % 6.5 % (2.0-8.0); NEUTROPHILS # 9.5 10^3/uL (1.5-8.5); NEUTROPHILS % 82.8 % (36.0-66.0); PLATELET COUNT, AUTOMATED 304 10^3/uL (150-450)
[2025-07-11 20:59] LABS: C REACTIVE PROTEIN QUANTITATIV 8.8 MG/DL (<1.0); CK-MB VALUE MASS 2.3 NG/ML (<3.6)
[2025-07-11 21:00] LABS: ALT/SGPT 13.0 U/L (7.0-40); AST/SGOT 13.0 U/L (<34); CALCIUM LEVEL 9.1 MG/DL (8.5-10.1); CARBON DIOXIDE LEVEL 25.0 MMOL/L (20-31); CHLORIDE LEVEL 108.0 MMOL/L (98-107); CPK CREATINE PHOSPHOKINASE 86.0 U/L (46-171); CREATININE FOR GFR 1.04 MG/DL (0.70-1.30); GLOMERULAR FILTRATION RATE 83.2 (>56); MB/CK RELATIVE INDEX 2.67 (< OR =4); POTASSIUM SERUM 4.3 MMOL/L (3.5-5.1); SODIUM LEVEL 142.0 MMOL/L (136-145)
[2025-07-11 21:08] LABS: INR 1.11
[2025-07-11] MEDS ORDERED: ISOVUE-370 76% 100 ML VIAL As Ordered ONE (21:24)
[2025-07-11] MEDS: NS (Normal Saline) 0.9% 1,000 ML IV ONE (21:31)
[2025-07-11] MEDS: ONDANSETRON 4MG/2ML VIAL IV ONE (21:31)
[2025-07-11 21:34] LABS: CK-MB VALUE MASS 2.2 NG/ML (<3.6)
[2025-07-11 21:35] LABS: CPK CREATINE PHOSPHOKINASE 78.0 U/L (46-171); MAGNESIUM LEVEL 1.4 MG/DL (1.8-2.4); MB/CK RELATIVE INDEX 2.82 (< OR =4); PHOSPHORUS LEVEL 3.7 MG/DL (2.5-4.9)
[2025-07-11] MEDS: PIPERACILLIN/TAZOBACTAM SOD 3.375 GM in DEXTROSE 5% (D5W) ADV/MINI-BAG 50 ML IV ONE (21:50)
[2025-07-12 01:16] LABS: CK-MB VALUE MASS 2.0 NG/ML (<3.6)
[2025-07-12 01:17] LABS: CPK CREATINE PHOSPHOKINASE 70.0 U/L (46-171); MB/CK RELATIVE INDEX 2.85 (< OR =4)
[2025-07-12] MEDS ORDERED: MAALOX 30 ML SUSP *UDC PO PRN (01:35)
[2025-07-12] MEDS ORDERED: guaiFENesin SYRUP 200 MG/10 ML UDC PO PRN (01:35)
[2025-07-12] MEDS ORDERED: DEXTROSE 50% 50 ML SYRINGE IV PRN (01:35)
[2025-07-12] MEDS ORDERED: ONDANSETRON 4MG/2ML VIAL IV PRN (01:35)
[2025-07-12] MEDS ORDERED: GLUCOSE 4 GM CHEW PO PRN (01:35)
[2025-07-12] MEDS ORDERED: MOM 30 ML SUSPENSION UDC PO PRN (01:35)
[2025-07-12] MEDS ORDERED: ACETAMINOPHEN 325 MG TAB PO PRN (01:35)
[2025-07-12] MEDS ORDERED: GLUCAGON INJ 1 MG VIAL SC PRN (01:35)
[2025-07-12] MEDS: MAG SULF 1GM/100ML (MAG RUN) 1 GM in IV 1 EA IV ONE (01:51)
[2025-07-12] MEDS: IPRATROPIUM 0.5 MG/ALBUTEROL 2.5 MG INH SOL UD 3 ML NEB SCH (02:30)
[2025-07-12] MEDS: AZITHROMYCIN INJ 500 MG, VIAL MATE ADAPTER 1 EACH in NS 250 ML IV SCH (03:28)
[2025-07-12] MEDS: NS (Normal Saline) 0.9% 1,000 ML IV SCH (03:29)
[2025-07-12 05:10] VITALS: BP 112/69; TEMP 97.1; O2SAT 98
[2025-07-12 07:30] VITALS: O2SAT 97
[2025-07-12] MEDS ORDERED: PIPERACILLIN/TAZOBACTAM SOD 3.375 GM in DEXTROSE 5% (D5W) ADV/MINI-BAG 50 ML IV SCH (07:35)
[2025-07-12 08:00] VITALS: O2SAT 95
[2025-07-12] MEDS: PANTOPRAZOLE 40MG VIAL IV SCH (08:17)
[2025-07-12] MEDS: DOCUSATE SODIUM 100 MG CAPSULE PO SCH (08:19)
[2025-07-12] MEDS: ENOXAPARIN 40 MG/0.4 ML SYRINGE (J1650 PER 10MG) SC SCH (08:20)
[2025-07-12] MEDS: INSULIN LISPRO (NovoLOG) PER UNIT SC SCH (08:20)
[2025-07-12] MEDS: PIPERACILLIN/TAZOBACTAM SOD 4.5 GM in DEXTROSE 5% (D5W) ADV/MINI-BAG 50 ML IV SCH (08:20)
[2025-07-12 08:31] LABS: PLATELET COUNT, AUTOMATED 256 10^3/uL (150-450)
[2025-07-12 08:44] VITALS: O2SAT 96
[2025-07-12 08:59] LABS: C REACTIVE PROTEIN QUANTITATIV 8.27 MG/DL (<1.0)
[2025-07-12] MEDS: DOXYCYCLINE HYCLATE 100 MG in DEXTROSE 5% (D5W) MINI-BAG PLU 100 ML IV SCH (09:09)
[2025-07-12] MEDS: ONDANSETRON 4MG/2ML VIAL IV PRN (09:09)
[2025-07-12 09:10] LABS: ALT/SGPT 10 U/L (7.0-40); AST/SGOT 12 U/L (<34); CALCIUM LEVEL 9.0 MG/DL (8.5-10.1); CARBON DIOXIDE LEVEL 23 MMOL/L (20-31); CHLORIDE LEVEL 108 MMOL/L (98-107); CREATININE FOR GFR 0.91 MG/DL (0.70-1.30); GLOMERULAR FILTRATION RATE > 90.0 (>56); MAGNESIUM LEVEL 1.6 MG/DL (1.8-2.4); POTASSIUM SERUM 4.3 MMOL/L (3.5-5.1); SODIUM LEVEL 140 MMOL/L (136-145)
[2025-07-12] MEDS: MAG SULF 1GM/100ML (MAG RUN) 1 GM in IV 1 EA IV SCH (10:07)
[2025-07-12] MEDS ORDERED: DOXY-440 PO (11:09)
[2025-07-12] MEDS ORDERED: ONDA-282 PO (11:09)
[2025-07-12] MEDS ORDERED: AMOX875T2 PO (11:09)
[2025-07-12 11:44] VITALS: BP 104/59; TEMP 98.8; O2SAT 96
[2025-07-12] MEDS ORDERED: INSULIN LISPRO (NovoLOG) PER UNIT SC SCH (21:00)
== END 2025-07-12 12:59 | disposition home or self-care (01) ==
LOC: EDBD 18:28 → M ED 18:28 → M ED INP 18:29 → M MS4PR 07-12 05:02
PROVIDERS: ADMIT Student in an Organized Health Care Education/Training Program; ATTEND Student in an Organized Health Care Education/Training Program
DX: J96.01 Acute respiratory failure with hypoxia (principal); R11.2 Nausea with vomiting, unspecified; E83.42 Hypomagnesemia; R05.9 Cough, unspecified; K21.9 Gastro-esophageal reflux disease without esophagitis; K22.89 Other specified disease of esophagus; R10.13 Epigastric pain; I12.9 Hypertensive chronic kidney disease with stage 1 through stage 4 chronic kidney disease, or unspecified chronic kidney disease; E78.5 Hyperlipidemia, unspecified; N18.2 Chronic kidney disease, stage 2 (mild); E11.22 Type 2 diabetes mellitus with diabetic chronic kidney disease; G47.33 Obstructive sleep apnea (adult) (pediatric); M79.7 Fibromyalgia; F32.A Depression, unspecified; F41.9 Anxiety disorder, unspecified; F90.9 Attention-deficit hyperactivity disorder, unspecified type; N40.0 Benign prostatic hyperplasia without lower urinary tract symptoms; Z98.84 Bariatric surgery status; Z90.49 Acquired absence of other specified parts of digestive tract; Z79.899 Other long term (current) drug therapy; Z79.84 Long term (current) use of oral hypoglycemic drugs
CPT/HCPCS: 36415; 71045; 71250; 74177; 80048; 80053; 80076; 82150; 82550; 82553; 82803; 83605; 83690; 83735; 83880; 84100; 84145; 84484; 85025; 85027; 85610; 85730; 86140; 86850; 86900; 86901; 87040; 87486; 87581; 87633; 87798; 93005; 93041; 94640; 94760; 96365; 96366; 96368; 96372; 96375; 96376; 97161; 97530; 99285; J0456; J1271; J1650; J1815; J2405; J2470; J2543; J2919; J3475; Q9967

== ENCOUNTER → 2025-07-15 | Outpatient (REF) | payer OTHER ==
[~2025-07-15] MED LIST changes: +AMOX875T2 PO; +DOXY-440 PO
[2025-07-15 14:54] LABS: APPEARANCE, URINE CLEAR (CLEAR); BACTERIA, URINE AUTO NEGATIVE (NEGATIVE); BILIRUBIN, URINE AUTO NEGATIVE (NEGATIVE); BLOOD, URINE BLOOD NEGATIVE (NEGATIVE); GLUCOSE, URINE (UA) AUTO NEGATIVE (NEGATIVE); KETONE, URINE AUTO NEGATIVE (NEGATIVE); LEUKOCYTE ESTERASE, URINE AUTO NEGATIVE (NEGATIVE); NITRITE, URINE AUTO NEGATIVE (NEGATIVE); PROTEIN, URINE AUTO NEGATIVE (NEGATIVE); RBC, URINE AUTO 0 /HPF (0-3); SPECIFIC GRAVITY URINE AUTO 1.010 (1.002-1.035); SQUAMOUS EPITHELIAL CELL UR AU 0 /HPF (0-6); UROBILINOGEN, URINE AUTO 2.0 mg/dL (0.0-2.0); WBC, URINE AUTO 1 /HPF (0-3)
[2025-07-15 15:16] LABS: CREATININE, URINE 44.1 MG/DL
[2025-07-15 15:17] LABS: MALB URINE SIEMENS 10.0 MG/L; MAU/CREAT RATIO 22.6 MCG/MG (0.0-30.0)
[2025-07-15 16:38] LABS: CHOLESTEROL LEVEL 100.0 MG/DL (<200); CHOLESTEROL RISK RATIO 2.27 (<5); LDL CHOLESTEROL 32.7 MG/DL (<100); NON-HDL-C 56.1 MG/DL; TRIGLYCERIDES LEVEL 117.0 MG/DL (<150)
[2025-07-15 16:41] LABS: TOTAL 25(OH) VITAMIN D 41.1 NG/ML (20.0-100.0); VITAMIN B12 LEVEL 316.0 PG/ML (211-911)
[2025-07-15 18:39] LABS: ESTIMATED AVERAGE GLUCOSE 123.0 MG/DL (60-110)
== END ==
LOC: M LAB REF 14:29
PROVIDERS: ATTEND Physician Assistant
DX: I10 Essential (primary) hypertension (principal); E78.5 Hyperlipidemia, unspecified; E11.9 Type 2 diabetes mellitus without complications; E55.9 Vitamin D deficiency, unspecified; E53.8 Deficiency of other specified B group vitamins